=== PATIENT | male | born 1990 | race Caucasian/White ===

== ENCOUNTER 2019-07-10 18:08 | Emergency (ER) | payer OTHER ==
[2019-07-10 18:15] VITALS: TEMP 98.9
--- NOTE | 2019-07-10 18:30 | ED ---
Overdose HPI - General Source: patient Mode of arrival: ambulatory Limitations: no limitations <Alcon Sheth - Last Filed: 07/10/19 20:05> <Jennyfer Wall - Last Filed: 07/14/19 11:51> - General Chief Complaint: Overdose Stated Complaint: Overdose Time Seen by Provider: 07/10/19 18:15 - History of Present Illness Initial Comments: Patient is a 29-year-old male with history of illicit substance abuse presenting to the emergency department with a chief complaint of overdose. Patient brought to the ED via EMS. Patient was found on the floor by his brother who contacted the ambulance. Patient reports he has been clean for multiple years and over the last week he injected heroin about 4 times. Patient states today he injected morning usual. Per EMS, he was given 2 intranasal and 2 IM of Narcan. Patient states he feels little foggy but is otherwise at his baseline. Patient has no other complaints. is also present in the room. (Alcon Sheth) - Related Data Home Medications Medication Instructions Recorded Confirmed Lisdexamfetamine Dimesylate 70 mg PO DAILY 07/10/19 07/10/19 [Vyvanse] Pregabalin [Lyrica] 150 mg PO BID 07/10/19 07/10/19 Sertraline HCl [Zoloft] 100 mg PO DAILY 07/10/19 07/10/19 Vivitrol 380mg/4ml Injection 380 mg IM Q30D 07/10/19 07/10/19 Allergies Allergy/AdvReac Type Severity Reaction Status Date / Time No Known Allergies Allergy Verified 07/10/19 19:27 Review of Systems ROS Other: All systems not noted in ROS Statement are negative. <Alcon Sheth - Last Filed: 07/10/19 20:05> ROS Other: All systems not noted in ROS Statement are negative. <Jennyfer Wall - Last Filed: 07/14/19 11:51> ROS Statement: Those systems with pertinent positive or pertinent negative responses have been documented in the HPI. Past Medical History Additional Past Medical History / Comment(s): Hx heroin abuse History of Any Multi-Drug Resistant Organisms: None Reported Past Surgical History: Hernia Repair Past Psychological History: No Psychological Hx Reported Smoking Status: Current every day smoker Past Alcohol Use History: None Reported Past Drug Use History: Heroin, Marijuana <Alcon Sheth - Last Filed: 07/10/19 20:05> General Exam Limitations: no limitations General appearance: alert, in no apparent distress Head exam: Present: atraumatic, normocephalic, normal inspection Eye exam: Present: normal appearance, PERRL, EOMI Pupils: Present: miosis ENT exam: Present: normal exam, normal oropharynx, mucous membranes moist Neck exam: Present: normal inspection, full ROM Respiratory exam: Present: normal lung sounds bilaterally Cardiovascular Exam: Present: regular rate, normal rhythm, normal heart sounds GI/Abdominal exam: Present: soft. Absent: distended, tenderness Extremities exam: Present: normal inspection, full ROM Back exam: Present: normal inspection, full ROM Neurological exam: Present: alert, oriented X3 Psychiatric exam: Present: normal affect, normal mood Skin exam: Present: warm, dry, intact, normal color <Alcon Sheth - Last Filed: 07/10/19 20:05> Course Vital Signs 07/10/19 07/10/19 07/10/19 18:11 18:58 19:46 Temperature 98.9 F Pulse Rate 104 H 78 Respiratory 20 18 14 Rate Blood Pressure 136/86 102/57 O2 Sat by Pulse 94 L 98 Oximetry 07/10/19 19:50 Temperature Pulse Rate 89 Respiratory 16 Rate Blood Pressure 135/95 O2 Sat by Pulse 97 Oximetry Medical Decision Making <Alcon Sheth - Last Filed: 07/10/19 20:05> <Jennyfer Wall - Last Filed: 07/14/19 11:51> - Medical Decision Making Patient is a 29-year-old male presenting to the emergency department with a chief complaint for heroin overdose. Patient brought to the ED via EMS. Patient has an extensive history of substance abuse. Patient did also reveal later during his ED stay that he took 2 klonapin early this morning and then several hours later he injected heroin. On initial evaluation patient is alert and oriented 3. Patient was answering questions with ease. Patient received 2 mg of a nasal and 2 mg of IM Narcan an ambulance. Urine drug screen is positive for opioids, amphetamines, marijuana, and methamphetamines. Patient did begin to slur his speech after 1.5 hours of ED stay. He was also getting drowsy. He was given 1 mg dose of IV Narcan again. Patient states he would like to sign out AMA. Advised the patient about the possible questions of leaving under the influence of opioids. Patient states he is fully understandable and agreeable. His is also present in the room. Return parameters thoroughly discussed the patient was understanding and agreeable. Case discussed with physician. (Alcon Sheth) I was available for consultation in the emergency department. The history and physical exam were done by the midlevel provider. I was consulted for this patients care. I reviewed the case with the midlevel provider and based on their presentation of the patient, I agree with the assessment, medical decision making and plan of care as documented. I evaluated the patient myself with his significant other at bedside. Patient awake, alert and capable of making his own decisions. I also discussed risks of leaving to include sedation, permanent disability and . Patient understood, able to recite risks in his own words. Patient made aware he is leaving against medical advice. Patient understood. Girlfriend at bedside encouraged to call 911 if patient become sedated again. Patient left against medical advice. Chart was dictated using [employer] dictation software. Attempts were made to correct any dictation errors however some typographical errors may persist. Patient was seen during a national state of emergency due to the Covid-19 pandemic. (Jennyfer Wall) - Lab Data Lab Results 07/10/19 Range/Units 19:00 Urine Opiates Screen Detected H (NotDetected) Ur Oxycodone Screen Not Detected (NotDetected) Urine Methadone Screen Not Detected (NotDetected) Ur Propoxyphene Screen Not Detected (NotDetected) Ur Barbiturates Screen Not Detected (NotDetected) U Tricyclic Antidepress Not Detected (NotDetected) Ur Phencyclidine Scrn Not Detected (NotDetected) Ur Amphetamines Screen Detected H (NotDetected) U Methamphetamines Scrn Detected H (NotDetected) U Benzodiazepines Scrn Not Detected (NotDetected) Urine Cocaine Screen Not Detected (NotDetected) U Marijuana (THC) Screen Detected H (NotDetected) - EKG Data EKG Comments: Sinus tachycardia, no ST changes or t wave Inversion. Ventricular rate 103, OK 170, QRS 82, QTC 432. (Alcon Sheth) Disposition Is patient prescribed a controlled substance at d/c from ED?: No Time of Disposition: 20:06 <Alcon Sheth - Last Filed: 07/10/19 20:05> <Jennyfer Wall - Last Filed: 07/14/19 11:51> Clinical Impression: Heroin overdose Disposition: Left Against Medical Advice Condition: Good Instructions (If sedation given, give patient instructions): Adult Overdose (ED) Referrals: Toni Ferro MD [Primary Care Provider] - 1-2 days
[2019-07-10 19:18] LABS: Amphetamine Screen,Urine Detected (NotDetected); Barbiturate Screen,Urine Not Detected (NotDetected); Benzodiazepines Screen,Urine Not Detected (NotDetected); Cocaine Screen,Urine Not Detected (NotDetected); Methadone Screen, Urine Not Detected (NotDetected); Opiate Screen,Urine Detected (NotDetected); Oxycodone Screen, Urine Not Detected (NotDetected); Phencyclidine Screen,Urine Not Detected (NotDetected); Tricyclic Antidepressant,Urine Not Detected (NotDetected); Urn Cannabinoid Scrn Detected (NotDetected)
[2019-07-10] MEDS ORDERED: NALOXONE 0.4 MG/ML 1 ML VIAL IV STA (19:38)
[2019-07-10 19:51] VITALS: BP 135/95; PULSE 89; RESP 16
== END 2019-07-10 20:10 | disposition left against medical advice (07) ==
LOC: EC 18:08
DX: T40.1X1A Poisoning by heroin, accidental (unintentional), initial encounter (principal); F11.129 Opioid abuse with intoxication, unspecified; R82.5 Elevated urine levels of drugs, medicaments and biological substances; F17.200 Nicotine dependence, unspecified, uncomplicated; Z79.899 Other long term (current) drug therapy
CPT/HCPCS: 80306; 96374; 99285; J2310; 99284